=== PATIENT | female | born 1935 | race Caucasian/White ===

== ENCOUNTER 2016-07-11 12:00 | Emergency (ER) | payer OTHER ==
[2016-07-11 12:31] LABS: MANUAL DIFF NEEDED? NO
[2016-07-11 12:38] LABS: BASO% 0.9 % (0.0-0.8); EOS# 0.27 X1000 (0.0-0.7); EOS% 4.2 % (0.0-10.0); HEMATOCRIT 38.4 % (37.0-47.0); HEMOGLOBIN 12.7 g/dL (12.0-16.0); IMM GRAN# 0.02 X1000 (0.0-0.04); IMM GRAN% 0.3 % (0.0-0.5); LYMPH# 2.26 X1000 (1.2-3.4); MCH 30.5 PG (27-31); MCHC 33.1 g/dL (33-37); MCV 92.1 FL (81-99); MONO# 0.55 X1000 (0.11-0.59); MONO% 8.5 % (1.7-9.3); MPV 9.9 FL (7.4-10.4); NEUT% 51.1 % (42.2-75.2); PLT 194 X1000 (130-400); RBC 4.17 XMIL (4.2-5.4)
--- NOTE | 2016-07-11 12:39 | Diag Imaging Result Document ---
PROCEDURE NAME: CHEST-2 VIEWS - 07/11/2016 TWO VIEWS OF THE CHEST: FINDINGS: There are surgical clips in the right axilla. There is no evidence of acute cardiac or pulmonary disease otherwise, and compared to 12/16/2015, there has been no significant change. IMPRESSION: Stable chest.
[2016-07-11 12:54] LABS: AGAP 9; ALKALINE PHOSPHATASE 80 U/L (32-104); BUN 27 mg/dL (8-22); CALCIUM 9.6 mg/dL (8.8-10.2); CHLORIDE 100 mmol/L (98-107); COSMO 284; GOT 15 U/L (10-30); GPT 12 U/L (10-36); MAGNESIUM 2.5 mg/dL (1.5-2.7); POTASSIUM 4.6 mmol/L (3.5-5.1); SODIUM 139 mmol/L (136-145); TCO2 30 mmol/L (25-35); TOTAL PROTEIN 6.9 g/dL (6.3-8.3)
--- NOTE | 2016-07-11 13:06 | EKG Report ---
Test Performed on : 07/11/2016 12:58:52 PM Test Reason : probate court medical clearance Blood Pressure : / mmHG Vent. Rate : 069 BPM Atrial Rate : 069 BPM P-R Int : 164 ms QRS Dur : 144 ms QT Int : 426 ms P-R-T Axes : 077 075 -86 degrees QTc Int : 456 ms Normal sinus rhythm. Left bundle branch block Abnormal ECG No previous ECGs available Unconfirmed Result
[2016-07-11 13:11] LABS: FREE T4 0.83 ng/dL (0.93-1.70)
[2016-07-11 13:50] LABS: URINE SOURCE CLEAN CATCH
[2016-07-11 14:09] LABS: BILIRUBIN URINE NEGATIVE (NEGATIVE); BLOOD URINE NEGATIVE (NEGATIVE); CLARITY CLEAR (CLEAR); COLOR YELLOW; GLUCOSE URINE NEGATIVE (NEGATIVE); LEUKOCYTES URINE 2+ (NEGATIVE); NITRITE URINE NEGATIVE (NEGATIVE); PROTEIN URINE TRACE mg/dL (NEGATIVE); SP GRAVITY URINE 1.015; UROBILINOGEN URINE NORMAL
[2016-07-11 14:11] LABS: URINE CULTURE PL NEEDED? YES; URINE EPITHELIAL CELLS >10 /HPF (<10)
--- NOTE | 2016-07-11 14:20 | PROVIDER DOCUMENTATION ---
Addendum entered and electronically signed by Harry Lopez MD 07/11/16 19 :31: Departure - Departure Time of Disposition Order: 19:31 DIAGNOSIS: Agitation Dementia Qualifiers: Dementia type: unspecified type Dementia behavioral disturbance: with behavioral disturbance Qualified Code(s): F03.91 - Unspecified dementia with behavioral disturbance Psychosis Qualifiers: Psychosis type: unspecified psychosis type Qualified Code(s): F29 - Unspecified psychosis not due to a substance or known physiological condition UTI (urinary tract infection) Qualifiers: Urinary tract infection type: acute cystitis Hematuria presence: without hematuria Qualified Code(s): N30.00 - Acute cystitis without hematuria Disposition: [facility] [address] Certified Medical Emergency: Emergent Condition: Stable Additional Instructions: ED Follow Up Instructions: Follow up with [facility] for further management. Take Zepraxa as instructed by Andres Lazar. Take Ativan as needed for agitation. Low threshold to call 911 to be back to ER if her symptoms worsen, or have difficulties to take care of her at home, as we talked at ER. You have been treated by a care provider in the Emergency Department. These instructions are being provided to you so you can have an understanding of how to care for yourself upon discharge. Upon discharge from the Emergency Department, you are responsible for making arrangements for follow-up care by a physician of your choice. Take all prescribed medications as directed. Return to the Emergency Department immediately for any new or worsening symptoms. You may call the Physician Referral phone number at [phone] to obtain a list of Physicians who are taking new patients. Prescriptions: Lorazepam [Ativan] 1 mg PO BID PRN #10 tablet PRN Reason: Agitation Nitrofurantoin Monohyd/M-Cryst [Macrobid 100 mg Capsule] 100 mg PO BID #20 capsule Referrals: None,PCP [Primary Care Provider] - Instructions: Nitrofurantoin tablets or capsules, Urinary Tract Infection, Easy -to-Read, Lorazepam tablets, Dementia, [id number] Original Note: HPI-Psychological Disorder - General Source: patient, family (son) - History of Present Illness-Psych Onset/Duration: reports: unsure Timing: reports: still present Severity: reports: mild Situational problems related to:: reports: spouse Psychiatric Complaints: reports: angry, confused Substance Use: reports: denies Previous psych related hospitalizations?: Yes Patient arrived by:: private car Similar Symptoms Previously?: Yes Recently seen or treated by another doctor?: Yes - General Chief Complaint: Psych Stated Complaint: PSYCH EVAL Time Seen by Provider: 07/11/16 12:26 Allergies/Adverse Reactions: Patient Allergies Allergy/AdvReac Type Severity Reaction Status Date / Time No Known Allergies Allergy Verified 07/11/16 12:31 Home Medications: Home Medication List Medication Instructions Recorded Confirmed Last Taken Type Carvedilol 07/11/16 Unknown History Digoxin 07/11/16 Unknown History Duloxetine [Cymbalta] 07/11/16 Unknown History Furosemide 1 dose 07/11/16 07/11/16 Unknown History Isosorbide Mononitrate [Isosorbide 1 dose 07/11/16 Unknown History Mononitrate ER] Lorazepam [Ativan] 1 mg PO BID PRN #10 tablet 07/11/16 Unknown Rx - History of Present Illness-Psych Nature of Presenting Problem: Pt is 80 y/o F presents to the ED with anger. Pt's son states Pt has been showing a lot of anger towards . Pt states she feels fine. Pt's son states she is being seen at [facility] for behavioral problems. Pt's son states Pt has not been taking care of herself or her home like normal. Pt denies SI or HI. ( Radha Phipps) Review of Systems - Adult - REVIEW OF SYSTEMS - ADULT Constitutional: denies: chills, fever Eyes: denies: blurred vision, double vision Ears, Nose, Mouth & Throat: denies: ear pain, nose pain, throat pain Cardiovascular: denies: chest pain, heart murmur, irregular heart rate Respiratory: denies: cough, shortness of breath, wheezing Gastrointestinal: denies: abdominal pain, diarrhea, nausea, vomiting Genitourinary: denies: dysuria, hematuria Musculoskeletal: denies: bone pain, joint pain, neck pain Integumentary: denies: hives, itching Neurological: denies: dizziness/vertigo, headache/migraines Psychiatric: denies: anxiety, depression Endocrine: reports: no symptoms reported Hematologic/Lymphatic: reports: no symptoms reported Allergic/Immunologic: reports: no symptoms reported All Other Systems: Reviewed and Negative Past History - Adult - PAST MEDICAL HISTORY-ADULT Review of Records: reports: Nursing Assessment Review, Medications Reviewed, Social history reviewed & non-contributory. Major Childhood Illnesses: reports: denies history Cardiovascular: reports: HTN, hyperlipidemia Respiratory: reports: denies history Gastrointestinal: reports: denies history Obstetrical/Gynecological: reports: denies history Genitourinary: reports: denies history Musculoskeletal: reports: denies history Neurological: reports: dementia Endocrine/Immune: reports: denies history Other Conditions: reports: denies history - PRIOR SURGERIES/PROCEDURES Surgical/Procedure History: reports: cholecystectomy, tonsillectomy - IMMUNIZATION STATUS Childhood Immunizations: See Nurse Assessment Flu Vaccine: See Nurse Assessment - FAMILY HISTORY Family History: reviewed, not pertinent - SOCIAL HISTORY Smoking: quit less than 1 year, cigarettes Substance Use: denies Living Situation: family Physical Exam-Psych Focus - Physical Exam-Psych Initial Vital Signs Reviewed: Yes Appearance: appropriate appearance, appropriate insight, neat, no apparent distress, no memory impairment Neurological: alert, normal mood/affect, calm, other (oriented to person; disoriented to place and time) Behavior/Eye Contact/Speech: cooperative, good eye contact, normal speech Thoughts/Hallucinations: normal thought pattern, no apparent hallucination HENMT: normocephalic/atraumatic, moist mucous membranes, normal ENT inspection, TMs normal, pharynx normal Neck: non-tender, full range of motion, supple, normal inspection Respiratory: chest non-tender, lungs clear, normal breath sounds, no pleuratic chest pain, no respiratory distress, no accessory muscle use Cardiovascular: normal peripheral pulses, regular rate, rhythm, no edema, no gallop, no JVD, no murmur Abdominal Exam: normal bowel sounds, non tender, soft, no organomegaly, no pulsatile mass Lymphatic: no adenopathy Back Exam: normal inspection, no CVA tenderness, no vertebral tenderness Extremity: normal range of motion, non-tender, normal gait, normal inspection, no pedal edema, no calf tenderness, normal capillary refill, pelvis stable Integumentary: normal color, normal turgor, warm/dry Progress - REASSESSMENT Reassessment #1 Time Reassessed: 17:45 (Dr. Tracy at bedside with Pt and Pt's son) Status: unchanged (Pt's son request to take Pt home. Pt's son will watch Pt closely with other family members. Pt's son states they will try to push IBH appointment for Pt sooner. Pt's son understand and is okay with taking Pt home and being responsible for Pt's safety.) - EKG 1 Time of EKG reading by physician:: 12:58 EKG Read and Signed by:: Thomas Tracy EKG Interpretation (*Must complete 3 of following elements*): Abnormal Rate: 69 Rhythm: normal sinus rhythm Comments: LBBB - XRAY 1 XRAY: Bilateral XRAY Study: Chest Impression: Normal XRAY Interpretation: NAD - CT/MRI 1 CT Study: Head Impression: Normal CT Results: no acute disease - PLAN OF CARE/RESULTS Progress/Plan/Lab Results: Laboratory Tests 07/11/16 07/11/16 07/11/16 12:25 12:25 12:25 WBC 6.46 RBC 4.17 L Hgb 12.7 Hct 38.4 MCV 92.1 MCH 30.5 MCHC 33.1 RDW Std Deviation 13.2 Plt Count 194 MPV 9.9 Immature Gran % (Auto) 0.3 Neut % (Auto) 51.1 Lymph % (Auto) 35.0 Franklin % (Auto) 8.5 Eos % (Auto) 4.2 Baso % (Auto) 0.9 H Immature Gran # (Auto) 0.02 Neut # (Auto) 3.30 Lymph # (Auto) 2.26 Franklin # (Auto) 0.55 Eos # (Auto) 0.27 Baso # (Auto) 0.06 Sodium 139 Potassium 4.6 Chloride 100 Carbon Dioxide 30 Anion Gap 9 BUN 27 H Creatinine 0.8 Estimated GFR/1.73 m2 > 60 BUN/Creatinine Ratio 34 Glucose 116 H Calculated Osmolality 284 Calcium 9.6 Magnesium 2.5 Total Bilirubin 0.20 AST 15 ALT 12 Alkaline Phosphatase 80 Creatine Kinase Troponin T Xdj-[id number]-Lpsqwhatcfe Pept Total Protein 6.9 Albumin 4.0 Globulin 3.0 Albumin/Globulin Ratio 1.0 TSH 1.84 Free T4 0.83 L Urine Source Urine Color Urine Clarity Urine pH Ur Specific [place] Urine Protein Urine Ketones Urine Blood Urine Nitrite Urine Bilirubin Urine Urobilinogen Urine Microscopic RBC Urine WBC Urine Microscopic WBC Ur Epithelial Cells Urine Bacteria Urine Glucose 07/11/16 07/11/16 07/11/16 12:25 12:25 12:25 WBC RBC Hgb Hct MCV MCH MCHC RDW Std Deviation Plt Count MPV Immature Gran % (Auto) Neut % (Auto) Lymph % (Auto) [place] % (Auto) Eos % (Auto) Baso % (Auto) Immature Gran # (Auto) Neut # (Auto) Lymph # (Auto) [place] # (Auto) Eos # (Auto) Baso # (Auto) Sodium Potassium Chloride Carbon Dioxide Anion Gap BUN Creatinine Estimated GFR/1.73 m2 BUN/Creatinine Ratio Glucose Calculated Osmolality Calcium Magnesium Total Bilirubin AST ALT Alkaline Phosphatase Creatine Kinase 77 Troponin T < 0.010 [id number]-Wwdsukircsc Pept 167 Total Protein Albumin Globulin Albumin/Globulin Ratio TSH Free T4 Urine Source Urine Color Urine Clarity Urine pH Ur Specific [place] Urine Protein Urine Ketones Urine Blood Urine Nitrite Urine Bilirubin Urine Urobilinogen Urine Microscopic RBC Urine WBC Urine Microscopic WBC Ur Epithelial Cells Urine Bacteria Urine Glucose 07/11/16 12:30 WBC RBC Hgb Hct MCV MCH MCHC RDW Std Deviation Plt Count MPV Immature Gran % (Auto) Neut % (Auto) Lymph % (Auto) [place] % (Auto) Eos % (Auto) Baso % (Auto) Immature Gran # (Auto) Neut # (Auto) Lymph # (Auto) Franklin # (Auto) Eos # (Auto) Baso # (Auto) Sodium Potassium Chloride Carbon Dioxide Anion Gap BUN Creatinine Estimated GFR/1.73 m2 BUN/Creatinine Ratio Glucose Calculated Osmolality Calcium Magnesium Total Bilirubin AST ALT Alkaline Phosphatase Creatine Kinase Troponin T Lvz-[id number]-Srdljyvcpjj Pept Total Protein Albumin Globulin Albumin/Globulin Ratio TSH Free T4 Urine Source CLEAN CATCH Urine Color YELLOW Urine Clarity CLEAR Urine pH 5.0 Ur Specific [place] 1.015 Urine Protein TRACE A Urine Ketones NEGATIVE Urine Blood NEGATIVE Urine Nitrite NEGATIVE Urine Bilirubin NEGATIVE Urine Urobilinogen NORMAL Urine Microscopic RBC Not Reportable Urine WBC 2+ A Urine Microscopic WBC 10-20 A Ur Epithelial Cells >10 A Urine Bacteria 2+ Urine Glucose NEGATIVE Orders Category Date Time Status CHEST-2 VIEWS [RAD] Stat Exams 07/11/16 12:08 Completed HEAD W/O CONTRAST [CT] Stat Exams 07/11/16 14:21 Ordered CBC WITH ELECTRONIC DIFF [HEME] Stat Lab 07/11/16 12:25 Completed CK PROFILE [SP CHEM] Stat Lab 07/11/16 12:25 Completed COMPREHENSIVE METABOLIC PANEL [CHEM] Stat Lab 07/11/16 12:25 Completed Depakote [VALPROIC ACID] [TDM] Stat Lab 07/11/16 12:25 Received FOLATE Stat Lab 07/11/16 12:25 Received FREE T4 Stat Lab 07/11/16 12:25 Results MAGNESIUM [CHEM] Stat Lab 07/11/16 12:25 Completed PRO B-NATRIURETIC PEPTIDE Stat Lab 07/11/16 12:25 Completed RPR [SERO] Stat Lab 07/11/16 12:25 Received TROPONIN T Stat Lab 07/11/16 12:25 Completed TSH Stat Lab 07/11/16 12:[address] W/POSS RFLX CULT [URINALYSIS] Stat Lab 07/11/16 12:30 Completed URINE CULTURE [RM] Routine Lab 07/11/16 14:11 [address]UG SCREEN [address] Stat Lab 07/11/16 14:22 Ordered VITAMIN B12 Stat Lab 07/11/16 12:25 Results EKG [EKG] Stat Ther 07/11/16 12:08 Draft Vital Signs - 24 hr 07/11/16 12:23 Temperature 97.8 F Pulse Rate 80 Respiratory 18 Rate Blood Pressure 104/57 O2 Sat by Pulse 95 Oximetry Laboratory Tests 07/11/16 07/11/16 07/11/16 12:25 12:25 12:25 WBC 6.46 RBC 4.17 L Hgb 12.7 Hct 38.4 MCV 92.1 MCH 30.5 MCHC 33.1 RDW Std Deviation 13.2 Plt Count 194 MPV 9.9 Immature Gran % (Auto) 0.3 Neut % (Auto) 51.1 Lymph % (Auto) 35.0 Franklin % (Auto) 8.5 Eos % (Auto) 4.2 Baso % (Auto) 0.9 H Immature Gran # (Auto) 0.02 Neut # (Auto) 3.30 Lymph # (Auto) 2.26 Franklin # (Auto) 0.55 Eos # (Auto) 0.27 Baso # (Auto) 0.06 Sodium 139 Potassium 4.6 Chloride 100 Carbon Dioxide 30 Anion Gap 9 BUN 27 H Creatinine 0.8 Estimated GFR/1.73 m2 > 60 BUN/Creatinine Ratio 34 Glucose 116 H Calculated Osmolality 284 Calcium 9.6 Magnesium 2.5 Total Bilirubin 0.20 AST 15 ALT 12 Alkaline Phosphatase 80 Creatine Kinase Troponin T Jek-J-Xxzuzlgyxfa Pept Total Protein 6.9 Albumin 4.0 Globulin 3.0 Albumin/Globulin Ratio 1.0 TSH 1.84 Free T4 0.83 L Urine Source Urine Color Urine Clarity Urine pH Ur Specific [place] Urine Protein Urine Ketones Urine Blood Urine Nitrite Urine Bilirubin Urine Urobilinogen Urine Microscopic RBC Urine WBC Urine Microscopic WBC Ur Epithelial Cells Urine Bacteria Urine Glucose Urine Opiates Screen Ur Oxycodone Screen Urine Methadone Screen Ur Barbituates Screen Ur Tricyclics Screen Ur Phencyclidine Scrn Ur Amphetamines Screen U Methamphetamines Scrn Urine MDMA Screen U Benzodiazepines Scrn Urine Cocaine Screen U Cannabinoids Screen 07/11/16 07/11/16 07/11/16 12:25 12:25 12:25 WBC RBC Hgb Hct MCV MCH MCHC RDW Std Deviation Plt Count MPV Immature Gran % (Auto) Neut % (Auto) Lymph % (Auto) [place] % (Auto) Eos % (Auto) Baso % (Auto) Immature Gran # (Auto) Neut # (Auto) Lymph # (Auto) [place] # (Auto) Eos # (Auto) Baso # (Auto) Sodium Potassium Chloride Carbon Dioxide Anion Gap BUN Creatinine Estimated GFR/1.73 m2 BUN/Creatinine Ratio Glucose Calculated Osmolality Calcium Magnesium Total Bilirubin AST ALT Alkaline Phosphatase Creatine Kinase 77 Troponin T < 0.010 Brp-O-Tneleyczvrc Pept 167 Total Protein Albumin Globulin Albumin/Globulin Ratio TSH Free T4 Urine Source Urine Color Urine Clarity Urine pH Ur Specific [place] Urine Protein Urine Ketones Urine Blood Urine Nitrite Urine Bilirubin Urine Urobilinogen Urine Microscopic RBC Urine WBC Urine Microscopic WBC Ur Epithelial Cells Urine Bacteria Urine Glucose Urine Opiates Screen Ur Oxycodone Screen Urine Methadone Screen Ur Barbituates Screen Ur Tricyclics Screen Ur Phencyclidine Scrn Ur Amphetamines Screen U Methamphetamines Scrn Urine MDMA Screen U Benzodiazepines Scrn Urine Cocaine Screen U Cannabinoids Screen 07/11/16 07/11/16 12:30 12:30 WBC RBC Hgb Hct MCV MCH MCHC RDW Std Deviation Plt Count MPV Immature Gran % (Auto) Neut % (Auto) Lymph % (Auto) [place] % (Auto) Eos % (Auto) Baso % (Auto) Immature Gran # (Auto) Neut # (Auto) Lymph # (Auto) [place] # (Auto) Eos # (Auto) Baso # (Auto) Sodium Potassium Chloride Carbon Dioxide Anion Gap BUN Creatinine Estimated GFR/1.73 m2 BUN/Creatinine Ratio Glucose Calculated Osmolality Calcium Magnesium Total Bilirubin AST ALT Alkaline Phosphatase Creatine Kinase Troponin T Qru-S-Uzkgnayhsbi Pept Total Protein Albumin Globulin Albumin/Globulin Ratio TSH Free T4 Urine Source CLEAN CATCH Urine Color YELLOW Urine Clarity CLEAR Urine pH 5.0 Ur Specific [place] 1.015 Urine Protein TRACE A Urine Ketones NEGATIVE Urine Blood NEGATIVE Urine Nitrite NEGATIVE Urine Bilirubin NEGATIVE Urine Urobilinogen NORMAL Urine Microscopic RBC Not Reportable Urine WBC 2+ A Urine Microscopic WBC 10-20 A Ur Epithelial Cells >10 A Urine Bacteria 2+ Urine Glucose NEGATIVE Urine Opiates Screen NONE DETECTED Ur Oxycodone Screen NONE DETECTED Urine Methadone Screen NONE DETECTED Ur Barbituates Screen NONE DETECTED Ur Tricyclics Screen NONE DETECTED Ur Phencyclidine Scrn NONE DETECTED Ur Amphetamines Screen NONE DETECTED U Methamphetamines Scrn NONE DETECTED Urine MDMA Screen NONE DETECTED U Benzodiazepines Scrn NONE DETECTED Urine Cocaine Screen NONE DETECTED U Cannabinoids Screen NONE DETECTED (Radha Phipps) Departure - Departure Time of Disposition Order: 17:29 Certified Medical Emergency: Emergent - Departure DIAGNOSIS: Agitation Dementia Qualifiers: Dementia type: unspecified type Dementia behavioral disturbance: with behavioral disturbance Qualified Code(s): F03.91 - Unspecified dementia with behavioral disturbance Psychosis Qualifiers: Psychosis type: unspecified psychosis type Qualified Code(s): F29 - Unspecified psychosis not due to a substance or known physiological condition UTI (urinary tract infection) Qualifiers: Urinary tract infection type: acute cystitis Hematuria presence: without hematuria Qualified Code(s): N30.00 - Acute cystitis without hematuria Disposition: HOME 01 Condition: Stable Additional Instructions: ED Follow Up Instructions: Follow up with [facility] for further management. Take Zepraxa as instructed by Andres Lazar. Take Ativan as needed for agitation. Low threshold to call 911 to be back to ER if her symptoms worsen, or have difficulties to take care of her at home, as we talked at ER. You have been treated by a care provider in the Emergency Department. These instructions are being provided to you so you can have an understanding of how to care for yourself upon discharge. Upon discharge from the Emergency Department, you are responsible for making arrangements for follow-up care by a physician of your choice. Take all prescribed medications as directed. Return to the Emergency Department immediately for any new or worsening symptoms. You may call the Physician Referral phone number at [phone] to obtain a list of Physicians who are taking new patients. Prescriptions: Lorazepam [Ativan] 1 mg PO BID PRN #10 tablet PRN Reason: Agitation Referrals: None,PCP [Primary Care Provider] - Instructions: Dementia, Epyf-nv-Mecx Attestation - Scribe Verification/Attestation Scribe:: Radha Phipps Acting as Scribe for:: Thomas Tracy Scribe documention review:: This chart was documented by a scribe and accurately reflects the service the provider performed and the decisions made by the provider. Physician Attestation
[2016-07-11 14:45] LABS: UR AMPHETAMINES QUAL NONE DETECTED (NONE DETECT); UR BARBITUATES QUAL NONE DETECTED (NONE DETECT); UR BENZODIAZEPIN QUAL NONE DETECTED (NONE DETECT); UR CANNABINOIDS QUAL NONE DETECTED (NONE DETECT); UR COCAINE QUAL NONE DETECTED (NONE DETECT); UR MDMA QUAL NONE DETECTED (NONE DETECT); UR METHADONE QUAL NONE DETECTED (NONE DETECT); UR METHAMPHETAMINE QUAL NONE DETECTED (NONE DETECT); UR OPIATES QUAL NONE DETECTED (NONE DETECT); UR OXYCODONE QUAL NONE DETECTED (NONE DETECT); UR PCP QUAL NONE DETECTED (NONE DETECT); UR TCA QUAL NONE DETECTED (NONE DETECT)
--- NOTE | 2016-07-11 15:05 | Diag Imaging Result Document ---
PROCEDURE NAME: HEAD W/O CONTRAST - 07/11/[address]: COMPARISON: None. FINDINGS: There is mild periventricular white matter hypodensity compatible with chronic microvascular disease. No intracranial mass or hemorrhage. The skull is intact. The sinuses, mastoids, and middle ears are clear. IMPRESSION: 1. Mild chronic microvascular disease. 2. No acute disease.
[2016-07-11] MEDS ORDERED: MACROBID PO ONE (16:30)
[2016-07-11] MEDS ORDERED: ATIVAN PO ONE (17:46)
[2016-07-11 19:45] VITALS: BP 135/74
== END 2016-07-11 19:51 ==
LOC: P.ED 12:00
DX: F03.91 Unspecified dementia, unspecified severity, with behavioral disturbance (principal); R45.1 Restlessness and agitation; F29 Unspecified psychosis not due to a substance or known physiological condition; N30.00 Acute cystitis without hematuria; R94.31 Abnormal electrocardiogram [ECG] [EKG]; R45.4 Irritability and anger; R41.0 Disorientation, unspecified; I10 Essential (primary) hypertension; Z79.899 Other long term (current) drug therapy; E78.5 Hyperlipidemia, unspecified; Z87.891 Personal history of nicotine dependence
CPT/HCPCS: 36415; 70450; 71020; 80053; 80165; 80305; 81001; 82550; 82607; 82746; 83735; 83880; 84439; 84443; 84484; 85025; 86592; 87088; 93005